=== PATIENT | male | born 1980 | race Caucasian/White ===

== ENCOUNTER 2022-02-03 05:35 | Emergency (ER) | payer BC, SELFPAY ==
[2022-02-03 05:36] VITALS: BP 138/89; PULSE 93; RESP 16; TEMP 36.2; O2SAT 98; BMI 30.4
--- NOTE | 2022-02-03 05:59 | EX.ED.DYSGE1 ---
HPI History of Present Illness Chief Complaint: Ear Problem Informant: patient Onset/Context/Timing Onset: Today (JPTA) Context: Sudden Onset Timing: Continuous Quality: no sx Location: R ear Narrative Narrative: Patient states he uses Q-tips to clean the wax out of his ears every morning, he lost the cotton from 1 side of the cotton swab and thought that it is stuck in his ear. He states his could not see it so he presents for evaluation. He does not have any discomfort in his ear right now or changes in his hearing or otorrhea. PFSH PFS Medical History CAD (coronary artery disease) Hypertension Home Medications lisinopril 40 mg PO DAILY 11/28/13 [History Last Taken 01/28/14 06:00] hydrochlorothiazide 12.5 mg PO DAILY 01/23/14 [History Last Taken Unknown] amlodipine 5 mg PO DAILY 06/13/14 [History Last Taken Unknown] aspirin 81 mg PO DAILY@0800 06/13/14 [History Last Taken Unknown] atorvastatin 40 mg PO QHS 06/13/14 [History Last Taken Unknown] Allergy/AdvReac Type Severity Reaction Status Date / Time No Known Allergies Allergy Verified 02/03/22 05:43 Social History Smoking Status: Never smoker ROS ROS ED Constitutional Constitutional ED: Denies chills or fever(s) Eyes Eyes: Denies change in vision or diplopia ENT ENT ED: Reports as per HPI; Denies ear discharge or ear pain Neurologic Neurologic: Denies headache(s), paresthesias or weakness EXAM Physical Exam Const Vital Signs: 02/03/22 05:36 Temperature 97.1 F L Temperature Source Temporal Pulse Rate 93 Respiratory Rate 16 Blood Pressure 138/89 H Blood Pressure Mean 105 Pulse Ox 98 Oxygen Delivery Method Room Air Positive well nourished and well developed General Appearance ED: well developed and NAD HEENT Reports normocephalic, external ears normal, EAC's normal and TM's clear HEENT Narrative: No foreign body/material in either external auditory canal. No pain with manipulation of the pinna or the tragus bilaterally. No EAC edema/erythema/tenderness on the right. Tympanic Membrane ED: Yes TM's clear Neuro oriented x3, CN's II-XII intact bilaterally and gait normal Sensorium / Orientation: alert Psych mental status grossly normal, thought process normal and cooperative MDM MDM MDM Narrative Medical decision making narrative: Patient is reassured, no evidence of a foreign body in either ear canal and his TMs are intact bilaterally with no signs of any other acute abnormality. Discharged in stable condition, we discussed reasons to return. Discharge Plan Triage Chief Complaint: Ear Problem ED Provider: Franky Pham Dx/Rx/DC Orders Clinical Impression: Encounter for medical screening examination Instructions: ED Foreign Body, Ear Canal (Removed) Prescriptions: No Action lisinopril 40 MG tablet 40 mg PO DAILY RF: 0 hydrochlorothiazide 12.5 MG capsule 12.5 mg PO DAILY RF: 0 atorvastatin 40 MG tablet 40 mg PO QHS RF: 0 amlodipine 5 MG tablet 5 mg PO DAILY RF: 0 aspirin 81 MG tablet 81 mg PO DAILY@0800 RF: 0 Primary Care Provider: Chris Cohn Referrals: Chris Cohn DO [Primary Care Provider] - Disposition Disposition: Home, Self Care
== END 2022-02-03 06:08 | disposition home or self-care (01) ==
LOC: ED 06:05
PROVIDERS: Emergency Provider Emergency Medicine; PCP Student in an Organized Health Care Education/Training Program; Visit Provider Emergency Medicine
DX: Z71.1 Person with feared health complaint in whom no diagnosis is made (principal); I25.10 Atherosclerotic heart disease of native coronary artery without angina pectoris; I10 Essential (primary) hypertension; Z79.82 Long term (current) use of aspirin; Z79.899 Other long term (current) drug therapy
CPT/HCPCS: 99282

== ENCOUNTER 2022-06-09 17:40 | Emergency (ER) | payer BC, SELFPAY ==
[2022-06-09 17:42] VITALS: BP 107/78; PULSE 84; RESP 16; TEMP 36.2; O2SAT 99; BMI 29.5
--- NOTE | 2022-06-09 19:00 | EKG12_ITS ---
Test Reason : dizzy Blood Pressure : / mmHG Vent. Rate : 079 BPM Atrial Rate : 079 BPM P-R Int : 158 ms QRS Dur : 090 ms QT Int : 348 ms P-R-T Axes : 030 -49 010 degrees QTc Int : 399 ms Normal sinus rhythm Left anterior fascicular block Poor R wave progression Abnormal ECG Confirmed by SANTOS MCKNIGHT, ALMAZ ([id number]), restaurant expeditor ANNABELLE HORN ([id number]) on 06/10/2022 1:25:15 PM Referred By: Hong Confirmed By:ALMAZ GRAHAM MD
[2022-06-09 19:07] VITALS: PULSE 82; RESP 18; O2SAT 98
[2022-06-09 19:12] LABS: Absolute Lymphocyte Count 1.56 X10^3/uL (0.83-4.51); Absolute Neutrophil Count 4.6 X10^3/uL (2.0-7.7); Basophil# 0.02 X10^3/uL; Basophil% 0.3 % (0-1); Eosinophil# 0.09 X10^3/uL; Eosinophils% 1.3 % (0-5); Hematocrit 41.6 % (40-54); Hemoglobin 14.3 g/dL (13.0-16.5); Lymphocyte # 1.56 X10^3/ul (0.83-4.51); Lymphocyte % 22.5 % (19-41); Mean Corp Hgb Conc 34.4 g/dL (32-36); Mean Corpuscular Volume 87.4 fL (80-94); Mean Platelet Vol. 10.5 fl (6.2-12.0); Monocyte# 0.63 X10^3/uL; Monocyte% 9.1 % (0-10); NRBC Flagged by Analyzer 0 % (0-5); Neutrophil # 4.61 X10^3/uL (2.7-7.7); Neutrophil % 66.5 % (47-70); Platelet Count 175 K/mm3 (150-450); RBC Distribution Width CV 12.2 % (11.6-14.6); Red Blood Count 4.76 M/mm3 (4.6-6.2); White Blood Count 6.9 K/mm3 (4.4-11.0)
--- NOTE | 2022-06-09 19:13 | RAD_ITS ---
STUDY: X-RAY CHEST REASON FOR EXAM: Male, 41 years old. CHEST PAIN chest pain TECHNIQUE: XR Chest 1 View COMPARISON: None FINDINGS: There is no demonstrated pleural abnormality. Normal size heart. Normal mediastinum and calli. Normal visualized pulmonary arteries. Normal visualized aortic arch and descending thoracic aorta. Normal visualized thoracic spine. Normal visualized ribs, clavicles, and shoulders. There is no demonstrated abnormality of the visualized soft tissue structures of the upper abdomen. RAD/Chest 1 View (Portable) IMPRESSION: There are no acute findings. Electronically Signed: Chuck Pfeiffer MD at 19:29 EDT ,
[2022-06-09 19:30] VITALS: BP 125/85; BP 126/72; BP 136/87; PULSE 80; PULSE 88; PULSE 90
[2022-06-09 19:35] LABS: Anion Gap 5 (5-15); BUN 16 mg/dL (7-18); Calcium,Total 9.4 mg/dL (8.5-10.1); Chloride 102 mmol/L (98-107); Creatinine, Serum 0.76 mg/dL (0.70-1.30); EST Glomerular Filtration Rate 120 mL/min (>60); Est Glom Filt Rate - Afr Amer 145 mL/min (>60); Estimated Creatinine Clearance 132.07 ml/min; Glucose 88 mg/dL (74-106); Potassium 4.1 mmol/L (3.5-5.1); Sodium Level 135 mmol/L (136-145); Troponin-I HS (w/2H Reflex) 3 pg/mL (3.0-78.0)
--- NOTE | 2022-06-09 20:01 | EX.ED.DYSGE1 ---
HPI History of Present Illness Chief Complaint: Dizziness Detail of Chief Complaint: Near syncope. Informant: patient and spouse/S.O. 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 Tonight while eating dinner he got dizzy felt very lightheaded felt like he might pass out and broke out in a sweat. He denies any headache, chest pain or abdominal pain. No nausea vomiting or diarrhea. No melena. No fever or chills. Said he has had episodes where he felt lightheaded before not ever this severe. Says that is since resolved he is feeling a lot better now. He denies any recent illness. Prior similar symptoms: Yes Recent Illness/Hospitalization: No PFSH PFS Medical History CAD (coronary artery disease) Hypertension Home Medications lisinopril 40 mg tablet 40 mg PO DAILY 11/28/13 [History Last Taken 01/28/14 06:00] hydrochlorothiazide 12.5 mg capsule 12.5 mg PO DAILY 01/23/14 [History Last Taken Unknown] amlodipine 5 mg tablet 5 mg PO DAILY 06/13/14 [History Last Taken Unknown] aspirin 81 mg tablet,delayed release 81 mg PO DAILY@0800 06/13/14 [History Last Taken Unknown] atorvastatin 40 mg tablet 40 mg PO QHS 06/13/14 [History Last Taken Unknown] dextroamphetamine-amphetamine 10 mg tablet 10 mg PO DAILY 06/09/22 [History Last Taken Unknown] Allergy/AdvReac Type Severity Reaction Status Date / Time No Known Allergies Allergy Verified 06/09/22 17:42 Social History Smoking Status: Former smoker ROS ROS ED ROS Narrative No recent illness. Review of Systems ROS Unobtainable: Denies due to encephalopathy Constitutional Constitutional ED: Denies chills Eyes Eyes: Denies blurry vision ENT ENT ED: Denies ear pain Cardiovascular Cardiovascular: Denies chest pain Respiratory/Chest Respiratory/Chest: Denies cough Gastrointestinal Gastrointestinal: Denies abdominal pain Genitourinary Genitourinary ED: Denies dysuria Musculoskeletal Musculoskeletal: Denies arthralgias Integumentary Denies abscess Neurologic Neurologic: Denies headache(s) Psychiatric Psychiatric: Denies anxiety Endocrine Endocrinology: Denies cold intolerance Hematologic/Lymphatic Hematologic/Lymphatic: Reports none Allergic/Immunologic Allergic/Immunologic ED: Denies mouth swelling EXAM Physical Exam Narrative Exam Narrative: Well-appearing 41-year-old male no acute distress vital signs stable afebrile. Pulse ox 90% room air no signs hypoxia. H EENT exam unremarkable. Neck nontender no lymphadenopathy. Lungs clear to auscultation bilaterally. Heart regular rhythm rate about 80 no murmur. Chest were nontender. Abdomen soft nontender. No peritoneal signs. Moving all 4 extremities. Equal symmetrical radial pulses. 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 Dorsi plantarflexion back. Back nontender. Neurologically is awake and alert with no focal motor deficits. NIH is 0. Hallpike negative. Const Vital Signs: 06/09/22 17:42 06/09/22 17:49 06/09/22 19:07 Temperature 97.1 F L Temperature Source Temporal Pulse Rate 84 Pulse Rate [Lying] Pulse Rate [Sitting (for 1 minute prior to obtaining)] Pulse Rate [Standing (for 1 minute prior to obtaining)] Respiratory Rate 16 Respiratory Effort Normal Short of Breath Respiratory Pattern Normal Blood Pressure 107/78 Blood Pressure [Lying] Blood Pressure [Sitting (for 1 minute prior to obtaining)] Blood Pressure [Standing (for 1 minute prior to obtaining)] Blood Pressure Mean 87 Blood Pressure Mean [Lying] Blood Pressure Mean [Sitting (for 1 minute prior to obtaining)] Blood Pressure Mean [Standing (for 1 minute prior to obtaining)] Pulse Ox 99 Oxygen Delivery Method Room Air Room Air 06/09/22 19:07 06/09/22 19:30 Temperature Temperature Source Pulse Rate 82 Pulse Rate [Lying] 80 Pulse Rate [Sitting (for 1 minute prior to obtaining)] 88 Pulse Rate [Standing (for 1 minute prior to obtaining)] 90 Respiratory Rate 18 Respiratory Effort Respiratory Pattern Blood Pressure Blood Pressure [Lying] 126/72 H Blood Pressure [Sitting (for 1 minute prior to obtaining)] 125/85 H Blood Pressure [Standing (for 1 minute prior to obtaining)] 136/87 H Blood Pressure Mean Blood Pressure Mean [Lying] 90 Blood Pressure Mean [Sitting (for 1 minute prior to obtaining)] 98 Blood Pressure Mean [Standing (for 1 minute prior to obtaining)] 103 Pulse Ox 98 Oxygen Delivery Method Room Air Positive well nourished and well developed; Negative for obese, cachectic, contractures or unkempt General Appearance ED: well developed; Negative for unkempt, cachectic or contractures Nutritional Appearance: Negative for cachectic or obese HEENT Reports TM's clear and moist mucous membranes; Denies dry mucous membranes Negative for trauma Tympanic Membrane ED: Yes TM's clear Mouth ED: No dry mucous membranes Mouth: No dry mucous membranes Eyes Negative for PERRL or EOMs intact bilaterally General Eye ED: Negative for pale conjunctiva or scleral icterus Neck no lymphadenopathy, supple and no JVD General: Negative for tenderness Lymph Lymphatic: Negative for other Chest Wall inspection of chest normal and palpation of chest normal Chest: Negative for other Resp normal respiratory effort and clear to auscultation bilaterally Effort and Inspection: Negative for retractions Auscultation: Negative for rales, rhonchi or wheezes Cardio regular rate, regular rhythm, S1 normal heart sound, S2 normal heart sound and no murmurs Palpation: Negative for palpable S3 Rate: Negative for bradycardia Rhythm: Negative for abnormal rhythm GI normal to inspection, nondistended, normoactive bowel sounds, non-tender, non-distended and no masses Inspection: Negative for abdominal distention Auscultation: normoactive bowel sounds Palpation: soft; Negative for tender, guarding or splenomegaly Back/Spine no CVA tenderness General Back: Negative for CVA tenderness Cervical Spine: Negative for cervical spine tenderness Thoracic Spine / Upper Back: Negative for thoracic spinal tenderness Lumbar Spine / Lower Back: Negative for lumbar spinal tenderness Extremity normal to inspection General Extremety ED: Negative for edema or tenderness General Extremity: Negative for edema Neuro oriented x3 and CN's II-XII intact bilaterally Sensorium / Orientation: alert; Negative for orientation impaired, lethargic or stuporous Motor Exam: strength 5/5 throughout Psych mental status grossly normal Appearance: Negative for unkempt Attitude: No agitated Mood & Affect: Negative for depressed Skin no rashes or lesions noted and no wounds Rashes: No rashes noted Trauma: Negative for abrasion MDM MDM MDM Narrative Medical decision making narrative: 41-year-old gentleman needs a near syncopal episode while sitting and eating dinner. Exam unremarkable. He will undergo work-up. Repeat exam patient is doing well at 8:07 PM. I went over all test results with him and his significant other at bedside. He will be discharged home with outpatient follow-up. I discussed with him possibly getting a Holter monitor or event monitor through his primary care provider. Return if worse. Lab Data Attestation: I reviewed the patient's lab results. Lab results narrative: CBC unremarkable white count 6.9. H&H 14 and 41. Platelets 175. Electrolytes sodium 135 gap of 5 normal BUN and creatinine. Glucose 88. Orthostatic vital signs negative. Chest x-ray unremarkable. Troponin normal at 3. Labs: Laboratory Results - last 24 hr 06/09/22 06/09/22 19:00 19:00 WBC 6.9 RBC 4.76 Hgb 14.3 Hct 41.6 MCV 87.4 MCH 30.0 MCHC 34.4 RDW Std Deviation 39.0 RDW Coeff of [place] 12.2 Plt Count 175 MPV 10.5 Immature Gran % (Auto) 0.300 Neut % (Auto) 66.5 Lymph % (Auto) 22.5 [place] % (Auto) 9.1 Eos % (Auto) 1.3 Baso % (Auto) 0.3 Absolute Neuts (auto) 4.6 Absolute Lymphs (auto) 1.56 Nucleated RBC % 0 Sodium 135 L Potassium 4.1 Chloride 102 Carbon Dioxide 28.0 Anion Gap 5 BUN 16 Creatinine 0.76 Estim Creat Clear Calc 132.07 Est GFR (MDRD) Af Amer 145 Est GFR (MDRD) Non-Af 120 BUN/Creatinine Ratio 21.0 H Glucose 88 Calcium 9.4 Troponin I High Sens 3 Radiography Chest X-Ray - ED: 1 View, Read by ED Physician, Read by Radiologist, Heart, Lungs, Mediastinum, Bony Structures and No Acute Disease Diagnostic Testing: Clinical Impression(s) from Imaging Studies Chest X-Ray 06/09/22 19:13 IMPRESSION: There are no acute findings. Electronically Signed: Chuck Pfeiffer MD at 19:29 EDT , Chest x-ray, single view, portable inter by myself and radiologist shows no acute abnormality. Rhythm Strip Rhythm Strip: Sinus Rhythm Rate: 79 Ectopy: None EKG Initial EKG: Attestation: I personally reviewed and interpreted this EKG as follows: Interpretation: Sinus Rhythm and No Acute Injury Pattern Comments: Normal sinus rhythm. Rate of 79. No acute signs of [place] or ischemia. No dysrhythmia. Discharge Plan Triage Chief Complaint: Dizziness ED Provider: Geovany Jennings Dx/Rx/DC Orders Clinical Impression: Near syncope, History of peripheral arterial disease Instructions: ED Near-Fainting, Uncertain Cause Prescriptions: No Action lisinopril 40 MG tablet 40 mg PO DAILY Label Comments: BP hydrochlorothiazide 12.5 MG capsule 12.5 mg PO DAILY atorvastatin 40 MG tablet 40 mg PO QHS amlodipine 5 MG tablet 5 mg PO DAILY aspirin 81 MG tablet 81 mg PO DAILY@0800 dextroamphetamine-amphetamine 10 mg tablet 10 mg PO DAILY Primary Care Provider: Chris Cohn Referrals: Chris Cohn DO [Primary Care Provider] - 3-5 Days Activity Restrictions/Additional Instructions: Your exam and all your test tonight were unremarkable. Follow-up your primary care provider might want discussed with them considering an outpatient event or Holter monitor to wear in case you have these episodes to monitor your heart to see if there is any type of abnormal heart rhythm. There is no signs of that tonight. Disposition Disposition: Home, Self Care
[2022-06-09 20:12] VITALS: BP 133/82; PULSE 73; RESP 18; O2SAT 100
[2022-06-09 21:09] LABS: Reflex Troponin-HS? (from REC) Y
== END 2022-06-09 20:16 | disposition home or self-care (01) ==
PROVIDERS: Emergency Provider Emergency Medicine; PCP Student in an Organized Health Care Education/Training Program; Visit Provider Emergency Medicine
DX: R42 Dizziness and giddiness (principal); I73.1 Thromboangiitis obliterans [Buerger's disease]; I10 Essential (primary) hypertension; I25.10 Atherosclerotic heart disease of native coronary artery without angina pectoris; Z87.891 Personal history of nicotine dependence; Z79.899 Other long term (current) drug therapy
CPT/HCPCS: 71045; 80048; 84484; 85025; 93005; 99285; J7030; A4216